=== PATIENT | female | born 1960 | race Caucasian/White ===

== ENCOUNTER → 2016-10-23 | Outpatient (CLI) | payer OTHER ==
--- NOTE | 2016-10-23 10:47 | MA ---
Screening Digital Mammogram With iCAD Analysis Clinical Indications: Routine screening. Technique: Standard cephalocaudal and mediolateral oblique projections were obtained. This examinatio n was processed by the iCAD computer aided detection system. Comparison: December 2014, July 2013, June 2012, June 2011, June 2010, February 2009, December 8. Breast density: Type C; Heterogeneously dense. Findings: CAD was reviewed. No masses, suspicious calcifications or other signs of malignancy are id entified. There has been no significant change in the appearance of either breast. Impression: Negative mammogram. BI-RADS 1. Recommendation: Annual screening as long as physical examination is negative in this patient with het erogeneously dense breasts. [facility] will send a result letter to the patient. Dense breast parenchyma diminishes mammographic sensitivity. Negative mammography should not preclude additional workup of a clinically suspicious finding. The patient's information is entered into a reminder system with a target due date for her next mammo gram.
== END ==
LOC: BRMIMAGING 08:09
DX: Z12.31 Encounter for screening mammogram for malignant neoplasm of breast (principal)

== ENCOUNTER 2017-05-18 13:20 | Emergency (ER) | payer OTHER ==
[2017-05-18] MEDS ORDERED: LORazepam 1 MG TAB PO ONE (13:35)
--- NOTE | 2017-05-18 13:38 | EDPHY ---
H & P Time Seen by Provider: 05/18/17 13:28 HPI/ROS: CHIEF COMPLAINT: Carpal pedal spasms HISTORY OF PRESENT ILLNESS: 57-year-old female arrives via private vehicle. States that she was in the car with a friend, developed sudden onset hyperventilation carpal pedal spasms which have by enlarged resolved now. She drank more alcohol than usual last evening. History of 4-5 drinks of alcohol per day, drank 8-9 drinks last evening. No hallucination. No seizure. No chest pain. No dyspnea. No back pain. No syncope or near syncope. PRIMARY CARE PROVIDER: REVIEW OF SYSTEMS: A ten point review of systems was performed and is negative with the exception of the items mentioned in the HPI PAST MEDICAL & SURGICAL HISTORY: No pertinent medical or surgical history SOCIAL HISTORY: history of daily alcohol use. 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 Appears anxious. . 2) HEAD: Normocephalic, atraumatic 3) HEENT: Pupils equal, round, reactive to light bilaterally. Sclera anicteric. 4) NECK: Full range of motion, no meningeal signs. 5) LUNGS: Clear auscultation bilaterally, no wheezes, no rhonchi, no retractions. 6) HEART: Regular rate and rhythm, no murmur, no heave, no gallop. 7) ABDOMEN: No guarding, no rebound, no focal tenderness, negative McBurney's, negative Schafer's, negative Rovsing's, negative peritoneal sign, 8) MUSCULOSKELETAL: Mild tremor. No carpal pedal spasms currently. 9) BACK: No CVA tenderness, no midline vertebral tenderness, no fluctuance, no step-off, no obvious trauma, no visual or palpable abnormality. 10) SKIN: No rash, no petechiae. DIFFERENTIAL DIAGNOSIS: in no particular include but limited to acute alcohol withdrawal, delirium tremens, acute anxiety, pulmonary embolus Smoking Status: Former smoker Constitutional: Initial Vital Signs Temperature (C) 36.9 C 05/18/17 13:23 Heart Rate 99 09/08/17 13:23 Respiratory Rate 20 05/18/17 13:23 Blood Pressure 120/99 H 05/18/17 13:23 O2 Sat (%) 99 05/18/17 13:23 O2 Delivery Mode Room Air Allergies/Adverse Reactions: No Known Allergies Allergy (Unverified 05/18/17 13:22) Home Medications: Medication Instructions Recorded Lovastatin 05/18/17 Prozac 10 MG (*) 05/18/17 MDM/Departure - [facility] ED Course/Re-evaluation: Doubt pulmonary embolus. We discussed possibility of acute alcohol withdrawal. She will be given oral Ativan would like to be discharged. Her friend is driving. Given usual and customary precautions. Doubt delirium tremens. - Depart Disposition: Home, Routine, Self-Care Clinical Impression: Anxiety Condition: Good Instructions: Anxiety (ED) Additional Instructions: Return to the emergency department if you develop seizure, return of similar symptoms to her hands or feet, chest pain, shortness of breath, or any other symptoms that concern Referrals: [facility],. [Clinic] - 2-3 days, call for appt.
[2017-05-18 13:58] VITALS: BP 142/103; PULSE 63; RESP 18; TEMP 97.3; O2SAT 96
== END 2017-05-18 13:59 | disposition home or self-care (01) ==
DX: F41.9 Anxiety disorder, unspecified (principal); Z87.891 Personal history of nicotine dependence

== ENCOUNTER → 2017-11-14 | Outpatient (CLI) | payer OTHER | LOC: BRMIMAGING 10:49 | PROVIDERS: ATTEND Family Medicine | DX: Z12.31 Encounter for screening mammogram for malignant neoplasm of breast (principal) ==